=== PATIENT | female | born 2000 | race Caucasian/White ===

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

== ENCOUNTER → 2024-01-06 | Outpatient (CLI) | payer BC ==
[2024-01-06 23:17] LABS: Bacterial Vaginosis PCR Negative (NEGATIVE); Candida Group, PCR NOT DETECTED (NOT DETECT); Candida glabrata-krusei, PCR NOT DETECTED (NOT DETECT)
[2024-01-11 20:51] LABS: C. TRACHOMATIS BY TMA,THINPREP Negative (Negative); N. GONORRHOEAE BY TMA,THINPREP Negative (Negative); SPECIMEN SOURCE Cervical/Vag
== END ==
LOC: LAB 15:28 → LAB SHORT 15:28
PROVIDERS: Obstetrics & Gynecology
DX: Z01.419 Encounter for gynecological examination (general) (routine) without abnormal findings (principal); Z11.3 Encounter for screening for infections with a predominantly sexual mode of transmission; N89.8 Other specified noninflammatory disorders of vagina
CPT/HCPCS: 87481; 87491; 87591; 87661; 87801

== ENCOUNTER → 2024-06-13 | Outpatient (CLI) | payer BC | LOC: LAB SHORT 15:44 → LAB 15:44 | DX: O09.93 Supervision of high risk pregnancy, unspecified, third trimester (principal) | CPT/HCPCS: 87081; 87150 ==

== ENCOUNTER 2024-07-14 20:30 | Inpatient (IN) | payer BC ==
[~2024-07-14] VITALS: Ht 165.1 cm; Wt 123.2 kg
[2024-07-14 20:39] VITALS: BP 129/81
[2024-07-14 20:55] VITALS: BP 120/73
[2024-07-14 22:08] VITALS: BP 118/74
[2024-07-14 22:23] VITALS: BP 109/66
[2024-07-14 22:38] VITALS: BP 113/74
[2024-07-15] VITALS (18 sets, daily range): BP systolic 92–130; BP diastolic 53–78
[2024-07-15] MEDS ORDERED: Zolpidem Tartrate 5 MG Tab PO ONE (00:15)
[2024-07-15] MEDS ORDERED: Lactated Ringer's 1,000 ML IV ONE (01:35)
[2024-07-15] MEDS ORDERED: Oxytocin 10 Unit / ML Vial IV ONE (02:04)
[2024-07-15] MEDS ORDERED: Ondansetron HCl 2 MG / ML 2ML Vial IV PRN ×2 (02:25→04:10)
[2024-07-15] MEDS ORDERED: Acetaminophen 500 MG Tab PO PRN ×2 (02:25→04:10)
[2024-07-15] MEDS ORDERED: FentaNYL Citrate 50 MCG/ML 2 ML Injection ONE (04:03)
[2024-07-15] MEDS ORDERED: FentaNYL Citrate 50 MCG/ML 2 ML Injection IV PRN (04:05)
[2024-07-15] MEDS ORDERED: Oxytocin 10 Unit / ML Vial IM PRN (04:10)
[2024-07-15] MEDS ORDERED: Carboprost Tromethamine 250 MCG/ML 1ML Amp IM PRN (04:10)
[2024-07-15] MEDS ORDERED: Methylergonovine Maleate 0.2MG / ML 1ML Amp IM PRN (04:10)
[2024-07-15] MEDS ORDERED: ePHEDrine Sulfate 50 MG/ML 1ML Injection XX PRN (04:10)
[2024-07-15] MEDS ORDERED: OXYTOCIN/RINGER'S LACTATE 500 ML IV PRN (04:10)
[2024-07-15] MEDS ORDERED: Tranexamic Acid 100 ML IV SCH (04:10)
[2024-07-15] MEDS ORDERED: CeFAZolin Sodium 2,000 MG in NS 100 ML IV ONE (04:10)
[2024-07-15] MEDS ORDERED: Lactated Ringer's 1,000 ML IV SCH ×4 (04:10→19:35)
[2024-07-15] MEDS ORDERED: Misoprostol 200 MCG Tab BC PRN ×2 (04:10→19:25)
[2024-07-15] MEDS ORDERED: FentaNYL 2mcg/ml-Bup 0.1% Epd 250 ML EPI PRN (04:10)
[2024-07-15] MEDS ORDERED: Calcium Carbonate 500 MG Tab Chew PO PRN (04:10)
[2024-07-15] MEDS ORDERED: Misoprostol 200 MCG Tab PR PRN ×2 (04:10→19:30)
[2024-07-15 04:28] LABS: BASOPHILS ABSOLUTE AUTO 0.02 K/mm3 (0.00-0.23); BASOPHILS PERCENT AUTO 0 % (0-2); EOSINOPHILS PERCENT AUTO 1 % (0-6); Hematocrit 34.8 % (33.0-51.0); Hemoglobin 11.3 g/dL (11.5-16.0); IMMATURE GRAN ABSOLUTE AUTO 0.03 K/mm3 (0.00-0.10); IMMATURE GRAN PERCENT AUTO 0 % (0-1); LYMPHOCYTES ABSOLUTE AUTO 2.58 K/mm3 (0.84-5.20); LYMPHOCYTES PERCENT AUTO 27 % (21-46); MONOCYTES ABSOLUTE AUTO 0.78 K/mm3 (0.16-1.47); MONOCYTES PERCENT AUTO 8 % (4-13); Mean Corpuscular HGB 26.8 pg (26.0-34.0); Mean Corpuscular HGB Conc 32.5 g/dL (31.5-36.5); Mean Corpuscular Volume 83 fL (80-100); Mean Platelet Volume 11.3 fL (9.1-12.4); NEUTROPHILS ABSOLUTE AUTO 6.19 K/mm3 (1.96-9.15); NEUTROPHILS PERCENT AUTO 64 % (41-73); Platelet Count 153 K/mm3 (150-400); RDW Coefficient Variation 14.6 % (11.7-14.2); RDW Standard Deviation 43.6 fL (35.1-46.3); Red Blood Cell Count 4.21 M/mm3 (3.80-5.20)
[2024-07-15] MEDS ORDERED: CeFAZolin Sodium 1,000 MG in NS 50 ML IV SCH (12:00)
[2024-07-15] MEDS ORDERED: Witch Hazel/Glycerin PADS TOP PRN (19:25)
[2024-07-15] MEDS ORDERED: Oxytocin 10 Unit / ML Vial IM ONE (19:25)
[2024-07-15] MEDS ORDERED: Ibuprofen 400 MG Tab PO PRN (19:30)
[2024-07-15] MEDS ORDERED: Benzocaine Topical Anesthetic Spray 60GM TOP PRN (19:30)
[2024-07-15] MEDS ORDERED: OXYTOCIN/RINGER'S LACTATE 500 ML IV SCH (19:30)
[2024-07-15] MEDS ORDERED: Acetaminophen 325 MG TABLET PO PRN (19:30)
[2024-07-15] MEDS ORDERED: FLU VACC TS2024-25(6MOS UP)/PF 45 MCG/0.5 ML SYRINGE IM ONE (19:30)
[2024-07-15] MEDS ORDERED: Lanolin Cream TOP PRN (19:30)
[2024-07-15] MEDS ORDERED: Misoprostol 100 MCG Tab PO PRN (19:35)
[2024-07-15] MEDS ORDERED: Polyethylene Glycol 3350 17 gm PO PRN (19:35)
[2024-07-15] MEDS ORDERED: Ketorolac Tromethamine 30mg Vial IV PRN (19:35)
[2024-07-16 04:37] VITALS: BP 99/54
[2024-07-16 06:53] LABS: BASOPHILS ABSOLUTE AUTO 0.04 K/mm3 (0.00-0.23); BASOPHILS PERCENT AUTO 0 % (0-2); EOSINOPHILS ABSOLUTE AUTO 0.05 K/mm3 (0.00-0.68); EOSINOPHILS PERCENT AUTO 0 % (0-6); Hematocrit 30.2 % (33.0-51.0); Hemoglobin 9.5 g/dL (11.5-16.0); IMMATURE GRAN ABSOLUTE AUTO 0.05 K/mm3 (0.00-0.10); IMMATURE GRAN PERCENT AUTO 0 % (0-1); LYMPHOCYTES ABSOLUTE AUTO 2.58 K/mm3 (0.84-5.20); LYMPHOCYTES PERCENT AUTO 23 % (21-46); MONOCYTES ABSOLUTE AUTO 0.87 K/mm3 (0.16-1.47); MONOCYTES PERCENT AUTO 8 % (4-13); Mean Corpuscular HGB 26.8 pg (26.0-34.0); Mean Corpuscular HGB Conc 31.5 g/dL (31.5-36.5); Mean Corpuscular Volume 85 fL (80-100); Mean Platelet Volume 12.1 fL (9.1-12.4); NEUTROPHILS ABSOLUTE AUTO 7.55 K/mm3 (1.96-9.15); NEUTROPHILS PERCENT AUTO 68 % (41-73); Platelet Count 161 K/mm3 (150-400); RDW Coefficient Variation 14.7 % (11.7-14.2); RDW Standard Deviation 45.7 fL (35.1-46.3); Red Blood Cell Count 3.54 M/mm3 (3.80-5.20); White Blood Cell Count 11.14 K/mm3 (4.00-11.30)
[2024-07-16 07:26] VITALS: BP 113/64
[2024-07-16] MEDS ORDERED: Citalopram Hydrobromide 20 MG Tab PO SCH (09:00)
[2024-07-16] MEDS ORDERED: Prenatal Vit/FE Fumarate/FA 1 Tab PO SCH (09:00)
[2024-07-16 11:15] VITALS: BP 111/58
[2024-07-16 15:34] VITALS: BP 114/66
--- NOTE | 2024-07-16 17:02 | NUR ---
PT SEEN BY OJ FROM [facility]. CLEARED TO GO HOME. PT WILL FOLLOW UP WITH DR PYLE WITHIN 2 WEEKS.
[2024-07-16] MEDS ORDERED: PRENATAL TABLE1 EAC2 PO (17:03)
[2024-07-16] MEDS ORDERED: IBUP800 PO (17:03)
[2024-07-16 19:46] VITALS: BP 108/73
--- NOTE | 2024-07-16 19:52 | NUR ---
DISCHARGE READY TO DC HOME. NO QUESTIONS OR CONCERNS. DC TEACHING DONE BY MARIO ALBERTO MARK. VERBALIZES UNSTANDING OF DC INSTRUCTIONS AND FOLLOW UP APPOINTMENTS. CARING FOR SELF AND BABY INDEPENDANTLY. BEATRIZ GANDARA.
== END 2024-07-16 20:00 | disposition home or self-care (01) | DRG 807 ==
LOC: OBS 20:30 → BC 20:33 → OBS 07-15 02:26 → BC 07-15 02:26
PROVIDERS: ADMIT Family Medicine
PROC: 10E0XZZ Delivery of Products of Conception, External Approach (ICD-10-PCS; principal; 2024-07-15)
DX: O99.214 Obesity complicating childbirth (principal); Z37.0 Single live birth; Z3A.40 40 weeks gestation of pregnancy; O99.824 Streptococcus B carrier state complicating childbirth; O99.344 Other mental disorders complicating childbirth; F41.9 Anxiety disorder, unspecified; F32.A Depression, unspecified; O48.0 Post-term pregnancy; O71.82 Other specified trauma to perineum and vulva; O69.81X0 Labor and delivery complicated by cord around neck, without compression, not applicable or unspecified; Z88.0 Allergy status to penicillin; Z79.899 Other long term (current) drug therapy
CPT/HCPCS: 36415; 59025; 85025; 86850; 86900; 86901; 99214; A9270; J0690; J1885; J2405; J2590; J3010; J7120